=== PATIENT | female | born 1985 | race Caucasian/White ===

== ENCOUNTER 2016-04-30 07:23 | Inpatient (IN) | payer BC ==
--- NOTE | 2016-04-30 07:55 | P.HPOB ---
History of Present Illness H&P Date: 04/30/16 Chief Complaint: My water broke at 5:30 this morning This is a 30-year-old white female 1 para 0 EDC 05/19/2016 at 37-2/7 weeks' gestation. Patient states that she has been crampy over the past several days, and experienced clear fluid leakage at 5:30 this morning. Fetus is been active throughout the . She denies vaginal bleeding. Past medical history is significant for panic attacks, well controlled on oral medication. Past surgical history adenoidectomy and wisdom teeth extracted in the past. Current medications sertraline 25mg once daily ALLERGIES, none known. Family history significant for breast cancer, hypertension, vulvar and ovarian cancer. Social history patient is , she is a nonsmoker, she denies alcohol or drug use. Obstetric history: Group B strep cultures negative, blood type O positive, rubella status immune. VDRL testing, hepatitis B surface antigen, HIV testing, repeat urine culture, gonorrhea and chlamydia cultures all negative. One-hour Glucola elevated, 3 hour GTT consistent with gestational diabetes. On exam this is a pleasant white female, she is 5 foot 2 inches, approximately 145 pounds, vital signs are stable and she is afebrile. The general physical exam is within normal limits. The cervix is 4 cm dilated, 80% effaced, -2 station, vertex presentation, clear fluid on the perineal body. heart rate is in the 140s, consistent with reactive NST. Impression: 37-2/7 weeks intrauterine , early spontaneous labor. All signs reassuring. Plan: Close maternal and surveillance. Consider oxytocin augmentation pending progress. Epidural may be placed at patient's request. Anticipate normal spontaneous vaginal delivery. Review of Systems Negative except as in HPI. Past Medical History Past Medical History: No Reported History Additional Past Medical History / Comment(s): History of panic attacks. History of Any Multi-Drug Resistant Organisms: None Reported Past Surgical History: No Surgical Hx Reported Additional Past Surgical History / Comment(s): Adenoidectomy, wisdom teeth extracted. Past Anesthesia/Blood Transfusion Reactions: No Reported Reaction Past Psychological History: Anxiety Smoking Status: Never smoker Past Alcohol Use History: None Reported Past Drug Use History: None Reported Medications and Allergies Home Medications Medication Instructions Recorded Confirmed Type Pnv with Ca,No.72/Iron/FA 1 tab PO DAILY 03/08/16 04/30/16 History [ Plus Tablet] Sertraline [Zoloft] 25 mg PO DAILY 03/08/16 04/30/16 History Allergies Allergy/AdvReac Type Severity Reaction Status Date / Time avocado Allergy Intermediate Abdominal Verified 04/30/16 07:42 Pain Exam - Vital Signs Vital signs: Intake and Output 04/29/16 04/30/16 04/30/16 22:59 06:59 14:59 Other: Weight 64.41 kg Patient Weight 05/01/16 06:59 Weight 64.41 kg See dictation under HPI, please Assessment and Plan Plan: Admit for labor. Close maternal and surveillance. Epidural may be placed per patient's request. Consider oxytocin augmentation pending clinical progress. Anticipate normal spontaneous vaginal delivery. Time with Patient: Less than 30
[2016-04-30] MEDS ORDERED: CARBOPROST TROMETHAMINE 250 MCG/ML 1 ML AMP IM PRN (08:00)
[2016-04-30] MEDS ORDERED: METHYLERGONOVINE 0.2 MG/ML 1 ML AMP IM PRN (08:00)
[2016-04-30] MEDS ORDERED: OXYTOCIN 10 UNIT/ML 1 ML VIAL IM PRN (08:00)
[2016-04-30] MEDS ORDERED: TERBUTALINE 1 MG/ML VIAL SQ PRN (08:00)
[2016-04-30] MEDS ORDERED: LIDOCAINE 1% (PF) 10 MG/ML (30 ML SDV) SQ PRN (08:00)
[2016-04-30] MEDS: LACTATED RINGERS 1,000 ML IV SCH ×6 (08:22→20:27)
[2016-04-30] MEDS: OXYTOCIN 30 UNITS/500 ML NS 30 UNIT in SALINE 1 500ML.BAG IV SCH ×3 (08:23→14:51)
[2016-04-30 08:42] LABS: Basophils % (A) 0 %; CHCM 35.4; Eosinophils % (A) 1 %; HDW 2.96; HGB 12.3 gm/dL (11.4-16.0); Large Platelets Flag Moderate; Luc # (Auto) 0.19; Luc % (Auto) 3; Lymphocytes # (A) 1.8 k/uL (1.0-4.8); Lymphocytes % (A) 28 %; MCHC 34.1 g/dL (31.0-37.0); MCV 87.8 fL (80.0-100.0); Monocytes # (A) 0.3 k/uL (0-1.0); Monocytes % (A) 5 %; Neutrophils % (A) 64 %; RDW 14.6 % (11.5-15.5); WBC 6.3 k/uL (3.8-10.6); WBC (Perox) 6.82
[2016-04-30 08:48] VITALS: BMI 25.9
[2016-04-30 09:07] LABS: Glucose,Whole Blood 88 mg/dL (75-99)
[2016-04-30] MEDS ORDERED: BUPIVACAINE (PF) 0.25% 30 ML VIAL ONE (10:20)
[2016-04-30] MEDS ORDERED: fentaNYL (PF) 50 MCG/ML 5 ML AMP ONE (10:20)
[2016-04-30] MEDS ORDERED: SODIUM CHLORIDE 0.9% 100 ML BAG ONE (10:20)
[2016-04-30 10:59] LABS: Hemoglobin A1C 4.7 % (4.2-6.1)
[2016-04-30] MEDS ORDERED: HYDROCORTISONE 2.5% RECTAL CREAM 30 GM TUBE RECTAL PRN (14:48)
[2016-04-30] MEDS ORDERED: ACETAMINOPHEN TAB 325 MG TAB PO PRN (14:48)
[2016-04-30] MEDS ORDERED: SIMETHICONE 80 MG CHEWABLE PO PRN (14:48)
[2016-04-30] MEDS ORDERED: ZOLPIDEM 5 MG TAB PO PRN (14:48)
[2016-04-30] MEDS ORDERED: diphenhydrAMINE ELIXIR 25 MG/10 ML CUP PO PRN (14:48)
[2016-04-30] MEDS ORDERED: LANOLIN CREAM 5 GM TUBE TOPICAL PRN (14:48)
[2016-04-30] MEDS ORDERED: diphenhydrAMINE 50 MG/ML 1 ML VIAL IVP PRN ×2 (14:48)
[2016-04-30] MEDS ORDERED: diphenhydrAMINE 25 MG CAP PO PRN (14:48)
[2016-04-30] MEDS ORDERED: diphenhydrAMINE 50 MG CAP PO PRN (14:48)
[2016-04-30] MEDS ORDERED: BENZOCAINE/MENTHOL SPRAY 1 GM/SPRAY AEROSOL TOPICAL PRN (14:48)
[2016-04-30] MEDS ORDERED: Acetaminophen-Codeine 300-30mg TAB PO PRN (14:48)
[2016-04-30] MEDS ORDERED: WITCH HAZEL 1 EACH MED..PAD TOPICAL PRN (14:48)
--- NOTE | 2016-04-30 14:48 | P.PROBDLV ---
Vaginal Delivery Note - . Vaginal Delivery Note: This is a 30-year-old white female 1 para 0 EDC 05/19/2016 at 37-2/7 weeks' gestation. Patient presented with spontaneous amniorrhexis which occurred at home at approximately 0530 hours, clear fluid. Her was Dictated by gestational diabetes, well controlled with diet. Group B strep cultures negative. Blood type O positive. Please see my dictated history and physical for details. She was admitted and oxytocin augmentation was started per hospital protocol. She became uncomfortable and requested an epidural, this was placed without issue. She continued to progress well through the first stage of labor with heart tones reassuring at all times. She became completely dilated at 1400 hrs. and began the second stage of labor at that time. She pushed very successfully in the dorsal lithotomy position. The perineal body was prepped and draped in usual sterile fashion. Infant's head delivered occiput anterior and he restituted accordingly. There was a tight nuchal cord 1 that was reduced on the perineal body. The anterior shoulder was then delivered easily at which time the oropharynx, nasopharynx and external nares were all bulb suctioned on the perineal body. Patient was officially delivered of a liveborn male infant at 1425 hrs. Umbilical cord was doubly clamped and ligated, he was handed to waiting nurses for evaluation where scores of 7 and 8 at one and 5 minutes respectively were given. The placenta delivered spontaneously, it was inspected and noted to be intact with trivascular cord at 1427 hrs. This time the uterus was massaged. Bleeding was somewhat brisk. Inspection of cervix, vagina, perineum and periurethral and perirectal areas revealed a small second-degree perineal laceration. This was repaired in the usual fashion for excellent reapproximation. Methergine was given IM 1. Oxytocin was opened up in the IV. Hemabate was then given as well, and good resolution of the bleeding was noted. Total estimated blood loss 600 mL's. weighed 3020 g , or 6 lbs. 11 oz. They are requesting circumcision further infant son.
[2016-04-30 15:58] LABS: CH 30.6; CHCM 34.2; HCT 27.8 % (34.0-46.0); HDW 3.07; Large Platelets Flag Moderate; MCH 30.1 pg (25.0-35.0); MCHC 33.4 g/dL (31.0-37.0); MCV 90.1 fL (80.0-100.0); RBC 3.09 m/uL (3.80-5.40); RDW 14.6 % (11.5-15.5); WBC 16.4 k/uL (3.8-10.6)
[2016-04-30 16:08] LABS: HGB 9.3 gm/dL (11.4-16.0)
[2016-04-30] MEDS: IBUPROFEN 600 MG TAB PO PRN (17:56)
[2016-04-30] MEDS: SENNOSIDES-DOCUSATE SODIUM 1 EACH TAB PO SCH (21:46)
[2016-05-01] MEDS: IBUPROFEN 600 MG TAB PO PRN ×2 (00:18→10:24)
[2016-05-01 07:21] LABS: Basophils % (A) 0 %; CH 30.6; CHCM 34.3; Eosinophils % (A) 0 %; HDW 3.09; Luc # (Auto) 0.31; Luc % (Auto) 3; Lymphocytes # (A) 1.8 k/uL (1.0-4.8); Lymphocytes % (A) 18 %; MCH 30.9 pg (25.0-35.0); MCHC 34.5 g/dL (31.0-37.0); MCV 89.7 fL (80.0-100.0); Monocytes # (A) 0.4 k/uL (0-1.0); Monocytes % (A) 4 %; Neutrophils # (A) 7.6 k/uL (1.3-7.7); Neutrophils % (A) 75 %; RBC 2.19 m/uL (3.80-5.40); RDW 15.1 % (11.5-15.5); WBC 10.1 k/uL (3.8-10.6); WBC (Perox) 10.38
[2016-05-01 07:35] LABS: HGB 6.8 gm/dL (11.4-16.0)
[2016-05-01 07:36] LABS: HCT 19.6 % (34.0-46.0)
[2016-05-01] MEDS: SENNOSIDES-DOCUSATE SODIUM 1 EACH TAB PO SCH ×2 (08:20→23:26)
--- NOTE | 2016-05-01 09:01 | P.DS ---
Providers Date of admission: 04/30/16 07:42 Expected date of discharge: 05/01/16 Attending physician: Dorothy Hawley Primary care physician: Stated None Hospital Course: This is a 30-year-old white female 1 para 0 EDC 05/19/2016 at 37-2/7 weeks' gestation. Patient presented with spontaneous amniorrhexis which occurred at home. was essentially unremarkable with the exception of gestational diabetes, well controlled with dietary measures. Please see my history and physical for details. Patient went on to deliver a liveborn male with scores of 7 and 8 at one and 5 minutes respectively. Infant weighed 6 lbs. 11 oz. or 3020 g. Patient had an estimated blood loss of approximate 600 mL at the time of delivery. Oxytocin was instituted, Hemabate was given, Methergine was given. Despite these measures, she passed approximate another 600 mL of clot. Perineal body was clean and dry, a second-degree perineal laceration was easily repaired. It was a tight nuchal cord 1 that was reduced on the perineal body. Please see my dictated delivery note for details. This morning her hemoglobin is 6.8. She is slightly tired and slightly dizzy when standing for long periods. For this reason, I ordered 1 unit of packed red blood cells which will be transfused. Circumcision will be performed at this time. Patient's vital signs are stable, her pulse is approximately 92-94. Posttransfusion hemoglobin will be checked. Fundus is firm and in the midline , symmetric and 18 week size. Bleeding is scant. Breasts are not engorged. Breast-feeding is going well. Our plan is for discharge home later today. Patient will follow-up with me in the office in 6 weeks. She will continue taking her vitamin daily, and will in addition add ferrous sulfate twice daily [id number]. She will use Motrin as needed for pain. I have given her prescription for breast pump. I have reminded her no intercourse, tampons or douching. She will call me with any brisk vaginal bleeding, with any large blood clots, with any pain not alleviated by [id number] ibuprofen, or indeed with any concerns. Baby will follow up with flight test supervisor as ordered. Patient Condition at Discharge: Good Plan - Discharge Summary Discharge Medication List Pnv with Ca,No.72/Iron/FA [ Plus Tablet] 1 tab PO DAILY 03/08/16 [ History] Sertraline [Zoloft] 25 mg PO DAILY 03/08/16 [History] Follow up Appointment(s)/Referral(s): Dorothy Hawley MD [STAFF PHYSICIAN] - 6 Weeks Discharge Disposition: HOME SELF-CARE
[2016-05-01] MEDS: OXYTOCIN 30 UNITS/500 ML NS 30 UNIT in SALINE 1 500ML.BAG IV SCH ×2 (09:36→09:53)
[2016-05-01] MEDS: LACTATED RINGERS 1,000 ML IV SCH (09:37)
[2016-05-01 23:30] VITALS: PULSE 97; RESP 14; TEMP 98.4
[2016-05-02] MEDS: IBUPROFEN 600 MG TAB PO PRN (01:03)
[2016-05-02 08:32] VITALS: BP 118/68
[2016-05-02] MEDS: SENNOSIDES-DOCUSATE SODIUM 1 EACH TAB PO SCH (11:50)
--- NOTE | 2016-05-06 13:16 | CDI ---
In responding to this query, please exercise your independent professional judgment. The [facility] Coding Staff and Clinical Documentation Specialists appreciate your assistance in clarifying documentation, maintaining compliance with coding guidelines, accurately documenting patients condition and capturing severity of illness. The fact that a question is asked does not imply that any particular answer is desired or expected. Communication forms are a method of clarifying documentation and are not made part of the Legal Health Record. Thank you in advance for your clarification. Last Revision, December 2014 Baylee Crawford [address] [place] [address] Documentation Clarification Form Date: 05/06/2016 11:42:00 AM From: Gloria Tasha Phone: Admit Date: 04/30/2016 7:42:00 AM Patient Name: Stefanie Ortiz Visit Number: [id number] Discharge Date: Dr. Dorothy Hawley Patient was given a transfusion of red blood cells. Patient history/risk factors: Patient was admitted for vaginal delivery. Per documentation in the discharge summar, the patient delivered and had an estimated blood loss of 600 mL at the time of delivery. Oxytocin was instituted , Hemabate was given and Methergine was given. Despite these measures, she passed approximate another 600 mL of clot. On 05/01, hgb was 6.8 and she was slightly tired and slightly dizzy when standing for long periods. Clinical Indicators: Tired and Dizzy when standing for long periods. Lab findings: Hgb/Hct 12.3/36.0 on 04/30, 9.3/27.8 on 04/30 repeat CBC, 6.8/19.6 on 05.01 Treatment: Transfusion 1 unit red blood cells. In your professional opinion, can you please clarify the diagnosis that best reflects the reason for the transfusion? Other Unable to determine Please document in your progress notes and discharge summary in order to capture severity of illness and risk of mortality. Include clinical findings that support your diagnosis. FYI: Press F11 to launch patient chart. Place X here if this finding has no clinical significance, is not applicable or if you are not able to provide any additional documentation. MTDD
--- NOTE | 2016-05-13 08:57 | CDI ---
In responding to this query, please exercise your independent professional judgment. The [facility] Coding Staff and Clinical Documentation Specialists appreciate your assistance in clarifying documentation, maintaining compliance with coding guidelines, accurately documenting patients condition and capturing severity of illness. The fact that a question is asked does not imply that any particular answer is desired or expected. Communication forms are a method of clarifying documentation and are not made part of the Legal Health Record. Thank you in advance for your clarification. Last Revision, December 2014 Baylee Crawford [address] [facility] [place] [address] Documentation Clarification Form Date: 05/06/2016 11:42:00 AM From: Gloria Tasha Phone: Admit Date: 04/30/2016 7:42:00 AM Patient Name: Stefanie Ortiz Visit Number: [id number] Discharge Date: Dr. Dorothy Hawley Thank you for signing the first query. Please document a response to this query prior to signing the query. Patient was given a transfusion of red blood cells. Patient history/risk factors: Patient was admitted for vaginal delivery. Per documentation in the discharge summar, the patient delivered and had an estimated blood loss of 600 mL at the time of delivery. Oxytocin was instituted , Hemabate was given and Methergine was given. Despite these measures, she passed approximate another 600 mL of clot. On 05/01, hgb was 6.8 and she was slightly tired and slightly dizzy when standing for long periods. Clinical Indicators: Tired and Dizzy when standing for long periods. Lab findings: Hgb/Hct 12.3/36.0 on 04/30, 9.3/27.8 on 04/30 repeat CBC, 6.8/19.6 on 05.01 Treatment: Transfusion 1 unit red blood cells. In your professional opinion, can you please clarify the diagnosis that best reflects the reason for the transfusion? Other Unable to determine Please document in your progress notes and discharge summary in order to capture severity of illness and risk of mortality. Include clinical findings that support your diagnosis. FYI: Press F11 to launch patient chart. Place X here if this finding has no clinical significance, is not applicable or if you are not able to provide any additional documentation. AMANDA
== END 2016-05-02 11:04 | disposition home or self-care (01) | DRG 775 ==
LOC: FBPOP 07:23 → 4FBP 07:42
PROVIDERS: ADMIT Obstetrics & Gynecology; ATTEND Obstetrics & Gynecology
PROC: 10E0XZZ Delivery of Products of Conception, External Approach (ICD-10-PCS; principal; 2016-04-30)
PROC: 0KQM0ZZ Repair Perineum Muscle, Open Approach (ICD-10-PCS; 2016-04-30)
PROC: 30233N1 Transfusion of Nonautologous Red Blood Cells into Peripheral Vein, Percutaneous Approach (ICD-10-PCS; 2016-05-01)
DX: O24.429 Gestational diabetes mellitus in childbirth, unspecified control (principal); O99.344 Other mental disorders complicating childbirth; F41.0 Panic disorder [episodic paroxysmal anxiety]; O69.1XX0 Labor and delivery complicated by cord around neck, with compression, not applicable or unspecified; O70.1 Second degree perineal laceration during delivery; Z37.0 Single live birth; Z3A.37 37 weeks gestation of pregnancy; Z79.899 Other long term (current) drug therapy; Z82.49 Family history of ischemic heart disease and other diseases of the circulatory system
CPT/HCPCS: 59025; 83036; 84112; 85025; 85027; 86850; 86900; 86901; 86920; 88307; 99213

== ENCOUNTER 2016-06-03 05:49 | Emergency (ER) | payer BC ==
[2016-06-03 06:04] VITALS: TEMP 97.1
--- NOTE | 2016-06-03 06:08 | ED ---
General Adult HPI - General Source: patient, family, EMS, RN notes reviewed Mode of arrival: EMS Limitations: no limitations <David Love - Last Filed: 06/03/16 06:55> <Otto Palomino - Last Filed: 06/03/16 10:19> - General Chief complaint: Vaginal Bleeding Stated complaint: Vaginal Bleeding Time Seen by Provider: 06/03/16 06:00 - History of Present Illness Initial comments: This is a 30-year-old female who is 1 month. Patient states a day after being her hemoglobin was low and she needed to be transfused a unit of blood. Patient states since that time she has been bleeding continuously and she states she has been bleeding about as much and she wonders if she was having a period. Patient states Friday she passed a large clot and at about 5:00 this morning she started passing bright red blood rather heavily. Patient denies any lightheadedness patient denies any dizziness patient denies any palpitations or difficulty breathing. Patient denies any abdominal pain but does states she has some minimal pelvic pain. (David Love) - Related Data Home Medications Medication Instructions Recorded Confirmed Sertraline [Zoloft] 25 mg PO HS 03/08/16 06/03/16 Allergies Allergy/AdvReac Type Severity Reaction Status Date / Time avocado AdvReac Intermediate Abdominal Verified 06/03/16 08:06 Pain Review of Systems ROS Other: All systems not noted in ROS Statement are negative. <David Love - Last Filed: 06/03/16 06:55> ROS Other: All systems not noted in ROS Statement are negative. <Otto Palomino - Last Filed: 06/03/16 10:19> ROS Statement: Those systems with pertinent positive or pertinent negative responses have been documented in the HPI. Past Medical History Past Medical History: No Reported History Additional Past Medical History / Comment(s): History of panic attacks. History of Any Multi-Drug Resistant Organisms: None Reported Past Surgical History: No Surgical Hx Reported Additional Past Surgical History / Comment(s): Adenoidectomy, wisdom teeth extracted. Past Anesthesia/Blood Transfusion Reactions: No Reported Reaction Past Psychological History: Anxiety Smoking Status: Never smoker Past Alcohol Use History: None Reported Past Drug Use History: None Reported - Past Family History Father Family Medical History: No Reported History <David Love - Last Filed: 06/03/16 06:55> General Exam Limitations: no limitations <David Love - Last Filed: 06/03/16 06:55> <Otto Palomino - Last Filed: 06/03/16 10:19> - General Exam Comments Initial Comments: GENERAL: Patient is well-developed and well-nourished. Patient is nontoxic and well- hydrated and is in no acute distress. ENT: Neck is soft and supple. No significant lymphadenopathy is noted. Oropharynx is clear. Moist mucous membranes. EYES: The sclera were anicteric and conjunctiva were pink and moist. Extraocular movements were intact and pupils were equal round and reactive to light. Eyelids were unremarkable. PULMONARY: Unlabored respirations. Good breath sounds bilaterally. No audible rales rhonchi or wheezing was noted. CARDIOVASCULAR: There is a regular rate and rhythm without any murmurs gallops or rubs. ABDOMEN: Soft and nontender with normal bowel sounds. No palpable organomegaly was noted. There is no palpable pulsatile mass. SKIN: Skin is clear with no lesions or rashes and otherwise unremarkable. NEUROLOGIC: Patient is alert and oriented x3. Cranial nerves II through XII are grossly intact. Motor and sensory are also intact. Normal speech, volume and content. Symmetrical smile. MUSCULOSKELETAL: Normal extremities with adequate strength and full range of motion. No lower extremity swelling or edema. No calf tenderness. LYMPHATICS: No significant lymphadenopathy is noted PSYCHIATRIC: Normal psychiatric evaluation. Genital On speculum exam there was a scant amount of active bleeding at this time (David Love) Course <David Love - Last Filed: 06/03/16 06:55> <Otto Palomino - Last Filed: 06/03/16 10:19> Vital Signs 06/03/16 06/03/16 06/03/16 05:57 06:12 07:40 Temperature 97.1 F L Pulse Rate 92 71 Pulse Rate [ 82 Right Sitting Pulse Oximetery ] Pulse Rate [ 105 H Right Standing Pulse Oximetery ] Pulse Rate [ 75 Right Supine Pulse Oximetery ] Respiratory 18 16 16 Rate Blood Pressure 111/68 111/64 Blood Pressure 115/75 [Right Arm Sitting] Blood Pressure 111/71 [Right Arm Standing] Blood Pressure 102/62 [Right Arm Supine] O2 Sat by Pulse 100 100 Oximetry 06/03/16 06/03/16 08:00 08:59 Temperature Pulse Rate 72 71 Pulse Rate [ Right Sitting Pulse Oximetery ] Pulse Rate [ Right Standing Pulse Oximetery ] Pulse Rate [ Right Supine Pulse Oximetery ] Respiratory 16 16 Rate Blood Pressure 106/68 118/61 Blood Pressure [Right Arm Sitting] Blood Pressure [Right Arm Standing] Blood Pressure [Right Arm Supine] O2 Sat by Pulse 100 99 Oximetry - Reevaluation(s) Reevaluation #1: 06/03/16 08:50 I did reevaluate the patient. She is feeling improved at this time I did discuss the findings with her and her . Dr. Hawley is to be contacted and the disposition is pending at this time. (Otto Palomino) Reevaluation #2: 06/03/16 10:18 I did discuss the findings with Dr. Hawley. The patient will be discharged and follow-up in the office this week I did discuss this with the patient and her and they are in agreement with this. (Otto Palomino) Medical Decision Making - Lab Data Result diagrams: 06/03/16 05:50 <David Lvoe - Last Filed: 06/03/16 06:55> - Lab Data Result diagrams: 06/03/16 05:50 06/03/16 06:38 - Radiology Data Radiology results: report reviewed (I did review the ultrasound and report there is a heterogeneous hypervascular thickened endometrium with cystic change retained products of conception is considered.), image reviewed <Otto Palomino - Last Filed: 06/03/16 10:19> - Medical Decision Making Orthostatics were negative for the patient. Patient stated that she was not dizzy or lightheaded when she was standing. Dr. Palomino will be taking over the care of this patient at 7:00 AM (David Love) - Lab Data Lab Results 06/03/16 06/03/16 06/03/16 Range/Units 05:50 06:38 06:38 WBC 5.3 (3.8-10.6) k/uL RBC 3.92 (3.80-5.40) m/uL Hgb 11.2 L D (11.4-16.0) gm/dL Hct 34.1 (34.0-46.0) % MCV 86.9 (80.0-100.0) fL MCH 28.5 (25.0-35.0) pg MCHC 32.8 (31.0-37.0) g/dL RDW 13.3 (11.5-15.5) % Plt Count 290 D (150-450) k/uL Neutrophils % 50 % Lymphocytes % 40 % Monocytes % 6 % Eosinophils % 1 % Basophils % 1 % Neutrophils # 2.6 (1.3-7.7) k/uL Lymphocytes # 2.1 (1.0-4.8) k/uL Monocytes # 0.3 (0-1.0) k/uL Eosinophils # 0.1 (0-0.7) k/uL Basophils # 0.0 (0-0.2) k/uL Hypochromasia Slight Poikilocytosis Slight PT 10.6 (9.0-12.0) sec INR 1.1 (<1.1) APTT 21.8 L (22.0-30.0) sec Sodium 141 (137-145) mmol/L Potassium 4.0 (3.5-5.1) mmol/L Chloride 110 H (98-107) mmol/L Carbon Dioxide 23 (22-30) mmol/L Anion Gap 8 mmol/L BUN 15 (7-17) mg/dL Creatinine 0.84 (0.52-1.04) mg/dL Est GFR (MDRD) Af Amer >60 (>60 ml/min/1.73 sqM) Est GFR (MDRD) Non-Af >60 (>60 ml/min/1.73 sqM) Glucose 93 (74-99) mg/dL Calcium 8.8 (8.4-10.2) mg/dL Total Bilirubin 0.4 (0.2-1.3) mg/dL AST 35 (14-36) U/L ALT 53 H (9-52) U/L Alkaline Phosphatase 107 (38-126) U/L Total Protein 6.4 (6.3-8.2) g/dL Albumin 3.5 (3.5-5.0) g/dL Blood Type Blood Type Recheck Antibody Screen Spec Expiration Date 06/03/16 Range/Units 06:38 WBC (3.8-10.6) k/uL RBC (3.80-5.40) m/uL Hgb (11.4-16.0) gm/dL Hct (34.0-46.0) % MCV (80.0-100.0) fL MCH (25.0-35.0) pg MCHC (31.0-37.0) g/dL RDW (11.5-15.5) % Plt Count (150-450) k/uL Neutrophils % % Lymphocytes % % Monocytes % % Eosinophils % % Basophils % % Neutrophils # (1.3-7.7) k/uL Lymphocytes # (1.0-4.8) k/uL Monocytes # (0-1.0) k/uL Eosinophils # (0-0.7) k/uL Basophils # (0-0.2) k/uL Hypochromasia Poikilocytosis PT (9.0-12.0) sec INR (<1.1) APTT (22.0-30.0) sec Sodium (137-145) mmol/L Potassium (3.5-5.1) mmol/L Chloride (98-107) mmol/L Carbon Dioxide (22-30) mmol/L Anion Gap mmol/L BUN (7-17) mg/dL Creatinine (0.52-1.04) mg/dL Est GFR (MDRD) Af Amer (>60 ml/min/1.73 sqM) Est GFR (MDRD) Non-Af (>60 ml/min/1.73 sqM) Glucose (74-99) mg/dL Calcium (8.4-10.2) mg/dL Total Bilirubin (0.2-1.3) mg/dL AST (14-36) U/L ALT (9-52) U/L Alkaline Phosphatase (38-126) U/L Total Protein (6.3-8.2) g/dL Albumin (3.5-5.0) g/dL Blood Type O Positive Blood Type Recheck No Antibody Screen NEGATIVE Spec Expiration Date 06/06/2016 - 2337 Disposition <David Love - Last Filed: 06/03/16 06:55> <Otto Palomino - Last Filed: 06/03/16 10:19> Clinical Impression: Dysfunctional uterine bleeding, Anemia Disposition: HOME SELF-CARE Condition: Good Instructions: Menstruation (ED), Dysfunctional Uterine Bleeding (ED) Referrals: Lai Friedman MD [Primary Care Provider] - 1-2 days Dorothy Hawley MD [STAFF PHYSICIAN] - 1-2 days
[2016-06-03 06:16] LABS: Basophils % (A) 1 %; CH 28.2; CHCM 32.5; Eosinophils # (A) 0.1 k/uL (0-0.7); Eosinophils % (A) 1 %; HCT 34.1 % (34.0-46.0); HDW 3.81; Hypochromasia Slight; Luc # (Auto) 0.15; Luc % (Auto) 3; Lymphocytes # (A) 2.1 k/uL (1.0-4.8); Lymphocytes % (A) 40 %; MCH 28.5 pg (25.0-35.0); MCHC 32.8 g/dL (31.0-37.0); MCV 86.9 fL (80.0-100.0); Mean Platelet Volume 7.5; Monocytes # (A) 0.3 k/uL (0-1.0); Monocytes % (A) 6 %; Neutrophils # (A) 2.6 k/uL (1.3-7.7); Neutrophils % (A) 50 %; Poikilocytosis Slight; RBC 3.92 m/uL (3.80-5.40); RDW 13.3 % (11.5-15.5); WBC 5.3 k/uL (3.8-10.6); WBC (Perox) 5.65
[2016-06-03 06:21] LABS: HGB 11.2 gm/dL (11.4-16.0)
[2016-06-03 06:23] VITALS: RESP 16
[2016-06-03 06:56] LABS: INR 1.1 (<1.1); Prothrombin Time 10.6 sec (9.0-12.0)
[2016-06-03 06:59] LABS: ALT 53 U/L (9-52); AST 35 U/L (14-36); Alkaline Phosphatase 107 U/L (38-126); Anion Gap 8 mmol/L; Blood Urea Nitrogen 15 mg/dL (7-17); Calcium 8.8 mg/dL (8.4-10.2); Carbon Dioxide 23 mmol/L (22-30); Chloride 110 mmol/L (98-107); Glucose 93 mg/dL (74-99); Non-African American GFR(MDRD) >60 (>60 ml/min/1.73 sqM); Sodium 141 mmol/L (137-145); Total Bilirubin 0.4 mg/dL (0.2-1.3); Total Protein 6.4 g/dL (6.3-8.2)
[2016-06-03 07:14] LABS: Partial Thromboplastin Time 21.8 sec (22.0-30.0)
--- NOTE | 2016-06-03 07:55 | US ---
EXAMINATION TYPE: US pelvic complete DATE OF EXAM: 06/03/2016 7:38 AM COMPARISON: NONE CLINICAL HISTORY: Pain. 1 month : increase in bleeding the past 2 days, no cramping, gravid a 1, para 1 TECHNIQUE: Transabdominal (TA) Date of LMP: August 2015 EXAM MEASUREMENTS: Uterus: 8.2 x 5.3 x 6.8 cm Endometrial Stripe: 2.4 cm Right Ovary: 2.4 x 1.1 x 1.7 cm Left Ovary: 2.7 x 1.6 x 2.0 cm 1. Uterus: retroverted, slightly heterogeneous echotexture 2. Endometrium: thickened at 2.4cm, heterogeneous with internal hypoechoic areas largest measuring 0 .9cm, increased vascularity 3. Right Ovary: wnl 4. Left Ovary: wnl 5. Bilateral Adnexa: wnl 6. Posterior cul-de-sac: wnl Uterus is retroverted in shape. Endometrium is heterogeneous and thickened with cystic change with va scularity present. No free fluid is seen in pelvic cul-de-sac. IMPRESSION: Heterogeneous hypervascular thickened endometrium with cystic change consistent with sandra ined products of conception given patient's history.
[2016-06-03 10:38] VITALS: BP 103/58; PULSE 77
== END 2016-06-03 10:40 | disposition home or self-care (01) ==
LOC: EC 05:49
DX: N93.8 Other specified abnormal uterine and vaginal bleeding (principal); O90.81 Anemia of the puerperium; D64.9 Anemia, unspecified; F41.9 Anxiety disorder, unspecified; F41.0 Panic disorder [episodic paroxysmal anxiety]; Z79.899 Other long term (current) drug therapy; Z91.018 Allergy to other foods
CPT/HCPCS: 36415; 76856; 80053; 85025; 85610; 85730; 86850; 86900; 86901; 99285

== ENCOUNTER 2016-06-08 07:39 | Day surgery (SDC) | payer BC ==
[2016-06-08 08:17] LABS: Basophils % (A) 0 %; CH 28.2; CHCM 32.8; Eosinophils # (A) 0.1 k/uL (0-0.7); Eosinophils % (A) 2 %; HCT 29.8 % (34.0-46.0); HDW 3.95; HGB 9.8 gm/dL (11.4-16.0); Hypochromasia Slight; Luc # (Auto) 0.13; Luc % (Auto) 2; Lymphocytes # (A) 1.7 k/uL (1.0-4.8); Lymphocytes % (A) 29 %; MCH 28.3 pg (25.0-35.0); MCHC 32.8 g/dL (31.0-37.0); MCV 86.3 fL (80.0-100.0); Mean Platelet Volume 7.9; Monocytes # (A) 0.2 k/uL (0-1.0); Monocytes % (A) 4 %; Neutrophils # (A) 3.8 k/uL (1.3-7.7); Neutrophils % (A) 63 %; Poikilocytosis Slight; RBC 3.45 m/uL (3.80-5.40); RDW 13.4 % (11.5-15.5); WBC (Perox) 6.43
[2016-06-08] MEDS ORDERED: fentaNYL (PF) 50 MCG/ML 2 ML AMP ONE (08:18)
[2016-06-08] MEDS ORDERED: MIDAZOLAM 2 MG/2 ML VIAL ONE (08:18)
[2016-06-08] MEDS ORDERED: PROPOFOL 10 MG/ML 20 ML VIAL IV ONE (08:18)
[2016-06-08] MEDS ORDERED: LACTATED RINGERS 1,000 ML IV ONE ×2 (08:18→09:23)
[2016-06-08] MEDS ORDERED: LIDOCAINE 1% INJ 10MG/ML (20 ML MDV) ONE (08:18)
[2016-06-08] MEDS ORDERED: OXYTOCIN 10 UNIT/ML 1 ML VIAL ONE (08:18)
[2016-06-08] MEDS ORDERED: FERRIC SUBSULFATE (MONSELS) JAR TOPICAL ONE (08:37)
[2016-06-08] MEDS ORDERED: SILVER NITRATE APPLICATOR 1 EACH STICK..EA. TOPICAL ONE (08:38)
[2016-06-08] MEDS ORDERED: KETOROLAC 30 MG/ML 1 ML VIAL IVP ONE (08:50)
--- NOTE | 2016-06-08 08:50 | P.PCN ---
Date of Procedure: 06/08/16 Preoperative Diagnosis: bleeding, suspect retained products of conception Postoperative Diagnosis: Retained products of conception Procedure(s) Performed: Suction dilatation and curettage of the uterus Anesthesia: NICOLLE Surgeon: Dorothy Hawley Estimated Blood Loss (ml): 100 IV fluids (ml): 500 Urine output (ml): 200 Pathology: other (Uterine contents) Condition: stable Disposition: PACU Description of Procedure: Patient is brought to the operating suite where a general anesthetic is administered without difficulty. The appropriate timeout is performed to assure proper patient and procedural identification. Antibiotics are not deemed necessary. Examination under anesthesia reveals a small anteverted uterus, negative adnexa bilaterally. Bladder is drained for 200 mL of clear yellow urine. Weighted speculum was placed into the vagina after the perineal body is prepped and draped in the usual sterile fashion. The anterior lip of the cervix is gently grasped with a double-tooth tenaculum. Uterus sounds to a depth of 8 cm. The cervix was gently and systematically dilated with Hanks dilators with no resistance. A #8 curved curet is placed to the dome of the fundus, and under appropriate suction pressures the uterine cavity is curettaged for a moderate amount of old-appearing necrotic tissue. A medium sharp curette is used when finished, to assure that all products are removed. The "cry of the uterus" is gently appreciated. Oxytocin was given in the IV. Inspection of the anterior cervix revealed small puncture wound from the tenaculum, a small amount of bleeding is controlled nicely with nitrous stick' s. No suture material is necessary. All sponge needle and enhancement counts are correct at the end of the procedure. The uterus and cervix are both clean and dry upon completion. Patient will follow-up with me in the office in 2 weeks. She will continue vitamin and oral iron supplement daily.
[2016-06-08] MEDS ORDERED: LACTATED RINGERS 1,000 ML IV SCH (09:30)
[2016-06-08 10:03] VITALS: TEMP 97
[2016-06-08 10:44] VITALS: BP 101/67; PULSE 66; RESP 16
== END 2016-06-08 11:45 | disposition home or self-care (01) ==
LOC: EC 07:39 → OR 07:39 → EDSTATUS 08:08 → 6PED 08:47 → OR 11:45
PROVIDERS: ATTEND Obstetrics & Gynecology
DX: O72.2 Delayed and secondary postpartum hemorrhage (principal); N99.72 Accidental puncture and laceration of a genitourinary system organ or structure during other procedure; O86.12 Endometritis following delivery; N71.0 Acute inflammatory disease of uterus; Z79.899 Other long term (current) drug therapy
CPT/HCPCS: 59160; 88305; 85025; J2250; J2590; J2001; J3010; J1885; J2704

== ENCOUNTER 2017-09-18 06:52 | Inpatient (IN) | payer OTHER ==
[2017-09-18 07:07] LABS: Glucose,Whole Blood 85 mg/dL (75-99)
[2017-09-18] MEDS ORDERED: CARBOPROST TROMETHAMINE 250 MCG/ML 1 ML AMP IM PRN (07:44)
[2017-09-18] MEDS ORDERED: TERBUTALINE 1 MG/ML VIAL SQ PRN (07:44)
[2017-09-18] MEDS ORDERED: LIDOCAINE 1% (PF) 10 MG/ML (30 ML SDV) SQ PRN (07:44)
[2017-09-18] MEDS ORDERED: OXYTOCIN 10 UNIT/ML 1 ML VIAL IM PRN (07:44)
[2017-09-18] MEDS ORDERED: METHYLERGONOVINE 0.2 MG/ML 1 ML AMP IM PRN (07:44)
[2017-09-18] MEDS ORDERED: OXYTOCIN 20 UNITS/1000 ML NS 1,000 ML IV SCH (07:45)
[2017-09-18] MEDS: LACTATED RINGERS 1,000 ML IV SCH ×3 (08:12→09:40)
--- NOTE | 2017-09-18 08:22 | P.HPOB ---
History of Present Illness H&P Date: 09/18/17 Chief Complaint: My water broke at 2:30 this morning This is a 32-year-old white female 2 para 1001 EDC 09/30/2017 at 38-2/7 weeks' gestation. Patient presents with a history of spontaneous amniorrhexis, clear fluid at 0230 hours. She is having mild irregular contractions. Fetus is been active throughout the . Past medical history is significant for panic disorder, and gestational diabetes. Current medications sertraline 25 mg daily, vitamin daily. Past surgical history suction D&C for retained products of conception 2017, wisdom teeth extracted, adenoidectomy. ALLERGIES none known. Family history significant for vulvar cancer ovarian cancer hypertension and breast cancer. Obstetric history vaginal delivery 2017 of 6 lbs. 11 oz. male at 37 weeks , gestational diabetes. Social history patient is , she has never been a smoker, she denies alcohol and drug use. Obstetric history blood type is O+, rubella status immune. VDRL testing, urine culture, hepatitis B surface antigen, gonorrhea and chlamydia cultures, group B strep cultures all negative. One-hour Glucola 177, 3 hour GTT consistent with gestational diabetes. On exam this is a pleasant female, 5 foot 2 inches, 140 pounds, vital signs are stable and patient is afebrile. The general physical exam is within normal limits. The cervix is 5 cm dilated, 90% effaced, -1 station, vertex presentation. There is obviously a fore bag in this is ruptured for clear fluid. heart rate is in the 140s with frequent accelerations consistent with reactive NST. Impression: 38-2/7 weeks intrauterine , early active labor. All signs otherwise reassuring. Plan: Close maternal and surveillance. Oxytocin if needed depending labor progress. Epidural may be placed per patient's request. Anticipate normal spontaneous vaginal delivery. Review of Systems Constitutional: Reports as per HPI Past Medical History Past Medical History: No Reported History Additional Past Medical History / Comment(s): History of panic attacks. Gestational diabetes 2016, 2018 History of Any Multi-Drug Resistant Organisms: None Reported Past Surgical History: No Surgical Hx Reported Additional Past Surgical History / Comment(s): Adenoidectomy, wisdom teeth extracted. Past Anesthesia/Blood Transfusion Reactions: No Reported Reaction Smoking Status: Never smoker - Past Family History Father Family Medical History: No Reported History Medications and Allergies Home Medications Medication Instructions Recorded Confirmed Type Sertraline [Zoloft] 25 mg PO HS 03/08/16 09/18/17 History 114/Iron A-G/Folate 1 1 tab PO DAILY 07/16/17 09/18/17 History [Prenate Elite Tablet] Allergies Allergy/AdvReac Type Severity Reaction Status Date / Time avocado AdvReac Intermediate Abdominal Verified 07/16/17 09:15 Pain Exam Intake and Output 09/17/17 09/18/17 09/18/17 22:59 06:59 14:59 Other: Weight 59.874 kg See dictation under HPI please Assessment and Plan Assessment: 38-2/7 weeks intrauterine , early active labor. Plan: Continue close maternal and surveillance. Epidural may be placed per patient's request. Anticipate normal spontaneous vaginal delivery. Time with Patient: Less than 30
[2017-09-18 08:38] LABS: Basophils % (A) 0 %; Eosinophils % (A) 0 %; HCT 28.5 % (34.0-46.0); HGB 9.6 gm/dL (11.4-16.0); Lymphocytes # (A) 2.1 k/uL (1.0-4.8); Lymphocytes % (A) 31 %; MCH 28.4 pg (25.0-35.0); MCHC 33.6 g/dL (31.0-37.0); MCV 84.3 fL (80.0-100.0); Mean Platelet Volume 9.4; Monocytes # (A) 0.3 k/uL (0-1.0); Monocytes % (A) 5 %; Neutrophils # (A) 4.1 k/uL (1.3-7.7); Neutrophils % (A) 62 %; Platelet Count 185 k/uL (150-450); Poikilocytosis Slight; RBC 3.38 m/uL (3.80-5.40); RDW 13.6 % (11.5-15.5); WBC 6.6 k/uL (3.8-10.6)
[2017-09-18] MEDS ORDERED: ROPIVACAINE 100 MG, fentaNYL (PF) 200 MCG in SODIUM CHLORIDE 0.9% 76 ML EPIDURAL ONE (09:06)
[2017-09-18 10:32] VITALS: BMI 24.1
[2017-09-18] MEDS ORDERED: diphenhydrAMINE 50 MG CAP PO PRN (11:33)
[2017-09-18] MEDS ORDERED: HYDROcodone/APAP 5-325MG 1 EACH TAB PO PRN (11:33)
[2017-09-18] MEDS ORDERED: SIMETHICONE 80 MG CHEWABLE PO PRN (11:33)
[2017-09-18] MEDS ORDERED: BENZOCAINE/MENTHOL SPRAY 1 GM/SPRAY AEROSOL TOPICAL PRN (11:33)
[2017-09-18] MEDS ORDERED: diphenhydrAMINE ELIXIR 25 MG/10 ML CUP PO PRN (11:33)
[2017-09-18] MEDS ORDERED: ZOLPIDEM 5 MG TAB PO PRN (11:33)
[2017-09-18] MEDS ORDERED: HYDROCORTISONE 2.5% RECTAL CREAM 30 GM TUBE RECTAL PRN (11:33)
[2017-09-18] MEDS ORDERED: WITCH HAZEL 1 EACH MED..PAD TOPICAL PRN (11:33)
[2017-09-18] MEDS ORDERED: diphenhydrAMINE 50 MG/ML 1 ML VIAL IVP PRN ×2 (11:33)
[2017-09-18] MEDS ORDERED: LANOLIN CREAM 5 GM TUBE TOPICAL PRN (11:33)
[2017-09-18] MEDS ORDERED: diphenhydrAMINE 25 MG CAP PO PRN (11:33)
--- NOTE | 2017-09-18 11:33 | P.PROBDLV ---
Vaginal Delivery Note - . Vaginal Delivery Note: This is a 32-year-old white female 2 para 1001 EDC 09/30/2017 at 38-2/7 weeks' gestation. Patient presents with spontaneous amniorrhexis which occurred at home at approximately 0230 hours, clear fluid. Mild uterine contractions to follow. is essentially unremarkable, group B strep cultures negative, rubella status immune, blood type O+. Gestational diabetes was noted, blood sugar on admission 84. Artificial amniorrhexis of a fore bag revealed clear fluid. heart tones remained reassuring throughout the first and second stages of labor. Patient became uncomfortable, requested and received an epidural. She progressed well through the first stage of labor and became completely dilated at 1049 hrs. The perineal body was prepped and draped in usual sterile fashion. With excellent maternal expulsive efforts the infant's head delivered occiput anterior and he restituted accordingly. The left shoulder had a cord wrapped around, but was otherwise easily reduced from underneath the pubic symphysis at which time the oropharynx, nasopharynx and external nares were all bulb suctioned on the perineal body. Patient was officially delivered of a liveborn male infant at 1113 hours. Umbilical cord was doubly clamped and ligated, he was handed to waiting nurses for evaluation where scores of 9 and 10 at one and 5 minutes respectively were given. The uterus is then firmly massaged. With excellent maternal expulsive efforts once again, the placenta delivered spontaneously, it was inspected and noted to be intact with trivascular cord at 1116 hours. Because of patient's history, a gentle exploration of the intrauterine cavity revealed no retained products of conception defects or clots. The perineal body, cervix vagina periurethral and perirectal areas are all examined carefully. There is a small first-degree midline laceration easily repaired using 3-0 Vicryl in the usual fashion. All sponge needle and enhancement counts are correct at the end of the procedure. Patient and her family are allowed to begin the bonding experience in the LDR. They are requesting circumcision further infant son. Estimated blood loss 250 mL's.
[2017-09-18 17:54] LABS: Hemoglobin A1C 5.1 % (4.0-6.0)
[2017-09-18] MEDS: ACETAMINOPHEN TAB 325 MG TAB PO PRN ×2 (18:51→23:12)
[2017-09-18] MEDS: SENNOSIDES-DOCUSATE SODIUM 1 EACH TAB PO SCH (19:58)
[2017-09-18] MEDS: IBUPROFEN 600 MG TAB PO PRN (19:58)
[2017-09-19] MEDS: IBUPROFEN 600 MG TAB PO PRN (04:17)
--- NOTE | 2017-09-19 08:10 | P.DS ---
Providers Date of admission: 09/18/17 07:30 Expected date of discharge: 09/19/17 Attending physician: Dorothy Hawley Primary care physician: Stated None Hospital Course: This is a 32-year-old white female 2 para 1001 EDC 09/30/2017 at 38-2/7 weeks' gestation. Patient presented with spontaneous amniorrhexis which occurred at home, clear fluid. was essentially unremarkable, be strep cultures negative, blood type O positive, rubella status immune. Please see my dictated history and physical for details. Oxytocin augmentation was given per hospital protocol. She requested and received an epidural. heart tones were reassuring throughout the entire labor. Patient went on to deliver a liveborn male infant with scores of 9 and 10 at one and 5 minutes respectively. There was an estimated blood loss recorded of 250, infant weighed 7 lbs. 2 oz. or 3-40 g. A small first-degree perineal laceration was easily repaired. Please see dictated operative note for details. Manual exploration at the bedside was performed for history of retained products of conception, and was clear. This wearing the patient is doing well. She is voiding, ambulating and passing flatus without difficulty. Vital signs are stable and she is afebrile. Fundus is firm and in the midline, symmetric and 18 week size. Extremities are negative for edema. [place] is doing well, circumcision has been performed. Patient is judged to be in excellent condition for discharge home. Patient will follow-up with me in the office in 6 weeks. I have reminded her no intercourse, tampons or douching. She will use [id number] ibuprofen products as needed for pain, 200 mg pills, 3 every 6 hours as needed. I have reminded her to call me with any fevers shakes or chills, foul smelling or copious lochia, with the passage of large blood clots, with any pain not alleviated by ibuprofen, or indeed with any concerns. We have briefly discussed options for contraception and we will discuss this further in the office. Patient Condition at Discharge: Critical Plan - Discharge Summary New Discharge Prescriptions: No Action Sertraline [Zoloft] 25 mg PO HS 114/Iron A-G/Folate 1 [Prenate Elite Tablet] 1 tab PO DAILY Discharge Medication List Sertraline [Zoloft] 25 mg PO HS 03/08/16 [History] 114/Iron A-G/Folate 1 [Prenate Elite Tablet] 1 tab PO DAILY 07/16/17 [ History] Follow up Appointment(s)/Referral(s): Dorothy Hawley MD [STAFF PHYSICIAN] - 6 Weeks Discharge Disposition: HOME SELF-CARE
[2017-09-19 09:05] VITALS: BP 111/66; PULSE 84; RESP 16; TEMP 98.1
[2017-09-19] MEDS: SENNOSIDES-DOCUSATE SODIUM 1 EACH TAB PO SCH (09:05)
== END 2017-09-19 12:00 | disposition home or self-care (01) | DRG 775 ==
LOC: FBPOP 06:52 → 4FBP 07:30
PROVIDERS: ADMIT Obstetrics & Gynecology; ATTEND Obstetrics & Gynecology
PROC: 0HQ9XZZ Repair Perineum Skin, External Approach (ICD-10-PCS; principal; 2017-09-18)
PROC: 3E0R3NZ Introduction of Analgesics, Hypnotics, Sedatives into Spinal Canal, Percutaneous Approach (ICD-10-PCS; principal; 2017-09-18)
PROC: 10E0XZZ Delivery of Products of Conception, External Approach (ICD-10-PCS; principal; 2017-09-18)
PROC: 00HU33Z Insertion of Infusion Device into Spinal Canal, Percutaneous Approach (ICD-10-PCS; principal; 2017-09-18)
DX: O24.429 Gestational diabetes mellitus in childbirth, unspecified control (principal); Z37.0 Single live birth; O70.0 First degree perineal laceration during delivery; Z3A.38 38 weeks gestation of pregnancy; Z80.3 Family history of malignant neoplasm of breast; Z80.41 Family history of malignant neoplasm of ovary; Z82.49 Family history of ischemic heart disease and other diseases of the circulatory system; Z79.899 Other long term (current) drug therapy; F41.0 Panic disorder [episodic paroxysmal anxiety]; O99.344 Other mental disorders complicating childbirth; Z91.018 Allergy to other foods
CPT/HCPCS: 59025; 83036; 84112; 85025; 99213